=== PATIENT | female | born 1960 | race Two or more races ===

== ENCOUNTER 2025-03-15 15:05 | Emergency (ER) | payer OTHER, SELFPAY ==
[2025-03-15 15:47] VITALS: BP 124/78; PULSE 109; RESP 20; TEMP 37.1; O2SAT 97
--- NOTE | 2025-03-15 16:12 | XR_ITS ---
Examination: PA chest single view Technique: Upright PA chest single view Date and time: 131, 2024, 1618 hrs., Comparison November 15, 2023. Indications: Coughing today. Findings: Normal heart size. No pneumonia or pulmonary edema. Moderate osteopenia. Impression: No active disease.
--- NOTE | 2025-03-15 16:12 | PD.EDRME ---
Rapid Medical Screening Exam [facility] Arrival date/time: 03/15/25 15:05 This is a 64-year-old female that comes into the emergency room with complaints of weakness and feeling bloated. Patient is also reports poor appetite for the past 2 days. Patient denies fever, nausea, vomiting, diarrhea. Patient reports an occasional cough. Patient was seen by her primary doctor. Patient states that 1 morning she woke up and she was dizzy but since then it has resolved and is not complaining of dizziness at this time. Patient had an EKG done with 's office and per patient it was normal. Patient denies chest pain shortness of breath. Patient has a history of high blood pressure, hyperlipidemia. Patient reports that her urine smells. Patient denies urinary symptoms. I have greeted and performed a focused initial assessment of this patient. Initial appropriate labs ordered at this time. A comprehensive ED assessment and evaluation of the patient and analysis of all test and completion of medical decision making process will be conducted by additional ED provider. Chief Complaint: Dizziness Time Seen by Provider: 03/15/25 15:59 Vital signs: Vital Signs Temperature 98.7 F 03/15/25 15:47 Pulse Rate 109 H 03/15/25 15:47 Respiratory Rate 20 03/15/25 15:47 Blood Pressure 124/78 03/15/25 15:47 Pulse Oximetry (%) 97 03/15/25 15:47 Oxygen Delivery Method Room Air 03/15/25 15:47
[2025-03-15 16:42] LABS: Collection Type, Urine Voided
[2025-03-15 16:42] LABS: Basophils # (Auto) 0.1 Thou/mm3 (0.0-0.2); Basophils % (Auto) 1 % (0-2.5); Eosinophils # (Auto) 0.0 Thou/mm3 (0.0-0.5); Eosinophils % (Auto) 0 % (0-10); Hematocrit 43.8 % (36.0-46.0); Hemoglobin 14.9 g/dL (12.0-16.0); Immature Granulocytes Auto 0.03 Thou/mm3 (0.00-0.00); Lymphocytes # (Auto) 2.1 Thou/mm3 (1.0-4.8); Lymphocytes % (Auto) 21 % (10-50); Mean Corpuscular HGB Conc 34.0 g/dl (31.0-37.0); Mean Corpuscular Hemoglobin 30.0 pg (25.0-35.0); Mean Corpuscular Volume 88 fL (80-100); Monocytes # (Auto) 0.6 Thou/mm3 (0.0-0.8); Monocytes % (Auto) 6 % (0-12); Neutrophils # (Auto) 6.9 Thou/mm3 (1.8-7.7); Neutrophils % (Auto) 71 % (37-80); Nucleated Red Blood Cell # 0.00 Thou/mm3 (0.00-0.00); Nucleated Red Blood Cell % 0 /100 WBC (0); Platelet Count 263 Thou/mm3 (140-440); RDW Standard Deviation 41.6 fL (36.4-46.3); Red Blood Count 4.96 Miln/mm3 (4.00-5.20); White Blood Count 9.7 Thou/mm3 (3.6-11.0)
[2025-03-15 16:54] LABS: Bilirubin,Urine Negative (Negative); Blood,Urine Negative (Negative); Color,Urine Yellow (Lt Yel-Yel); Glucose, Urine Trace (Negative); Hyaline Casts,Urine < 1 /hpf (0-1); Ketones,Urine Trace (Negative); Leukocyte Esterase,Urine Positive (Negative); Nitrite,Urine Negative (Negative); PH,Urine 5.5 (5.0-7.0); Protein,Urine 1+ (Neg - Trace); RBC,Urine 2 /hpf (0-3); Specific Gravity,Urine 1.027 (1.001-1.035); Squamous Epithelial Cell,Urine 1 /hpf (0-5); Urobilinogen,Urine Negative mg/dL (0.0-1.0); WBC,Urine 19 /hpf (0-5)
[2025-03-15 17:03] LABS: Clarity,Urine Hazy (Clear/Hazy); Culture Indicated,Urine Yes
[2025-03-15 17:07] LABS: Alanine Aminotransferase 18 U/L (10-49); Albumin, Serum 4.8 gm/dL (3.4-4.8); Albumin/Globulin Ratio 1.5 (1.2-2.2); Alkaline Phosphatase 112 U/L (46-116); Anion Gap 11 (7-16); Aspartate Amino Transferase 24 U/L (0-34); BUN/Creatinine Ratio 16 Ratio (12-20); Bilirubin,Total 1.0 mg/dL (0.3-1.2); Blood Urea Nitrogen 16 mg/dL (9-23); Calcium 10.4 mg/dL (8.3-10.6); Calcium (Corrected) 10.4 mg/dL (8.5-10.1); Carbon Dioxide 26.6 mMol/L (20.0-31.0); Chloride 100 mMol/L (98-107); Creatinine (Component) 1.0 mg/dL (0.6-1.3); Estimated Creatinine Clearance 58.3 mL/min (>60); Globulin 3.2 gm/dL (2.3-3.5); Glucose 129 mg/dL (74-106); Osmolality,Calculated 278 (275-295); Potassium 3.5 mMol/L (3.4-5.1); Sodium 138 mMol/L (136-145); Total Protein 8.0 gm/dL (5.7-8.2); eGFR > 60 See Note
[2025-03-15 18:22] VITALS: BP 105/66; PULSE 86; RESP 16; TEMP 36.9; O2SAT 96
--- NOTE | 2025-03-15 18:28 | PD.EDADULT ---
ED General RME/HPI General Chief complaint: Dizziness Stated complaint: DIZZY X 1 DAY; SENT BY [facility] Time Seen by Provider: 03/15/25 15:59 Arrival date/time: 03/15/25 15:05 RME / HPI RME / HPI narrative: 03/15/25 15:05 This is a 64-year-old female that comes into the emergency room with complaints of weakness and feeling bloated. Patient is also reports poor appetite for the past 2 days. Patient denies fever, nausea, vomiting, diarrhea. Patient reports an occasional cough. Patient was seen by her primary doctor. Patient states that 1 morning she woke up and she was dizzy but since then it has resolved and is not complaining of dizziness at this time. Patient had an EKG done with 's office and per patient it was normal. Patient denies chest pain shortness of breath. Patient has a history of high blood pressure, hyperlipidemia. Patient reports that her urine smells. Patient denies urinary symptoms. I have greeted and performed a focused initial assessment of this patient. Initial appropriate labs ordered at this time. A comprehensive ED assessment and evaluation of the patient and analysis of all test and completion of medical decision making process will be conducted by additional ED provider. Patient is a 64-year-old female who for the last several weeks has had early satiety and feeling bloated with decreased appetite. No vomiting. No fevers. No dysuria. Some epigastric abdominal pain and occasional heartburn. Related Data Previous Rx's ?Medication ?Instructions ?Recorded pantoprazole 40 mg tablet,delayed 40 mg PO QDAY #30 tabs 03/15/25 release (Protonix) Allergies Allergy/AdvReac Type Severity Reaction Status Date / Time No Known Allergies Allergy Verified 03/15/25 15:08 Review of Systems Review of Systems Systems Reviewed: All systems reviewed, normal except as documented ED Exam Narrative Physical exam: Generally patient is alert no obvious distress, heart regular rate and rhythm, lungs clear to auscultation equal bilaterally, abdomen soft bowel sounds present nondistended nontender currently in a relatively benign exam, extremities show capillary refill less than 2 seconds without edema neurologic exam [place] Coma Scale is 15 Course Quality Measures none Orders Category Date Time Status Bedside COVID-19 Antigen Test NOW Care 03/15/25 16:18 Active Bedside Influenza A&B Antigen Test NOW Care 03/15/25 16:18 Completed XR chest 1V Stat Exams 03/15/25 16:12 Completed CBC Stat Lab 03/15/25 16:19 Completed Comprehensive Metabolic Panel Stat Lab 03/15/25 16:19 Completed Urinalysis, C/S if Indicated Stat Lab 03/15/25 16:20 Completed Urine Culture Stat Lab 03/15/25 16:20 Received Vital Signs Vital signs: Vital Signs Temperature 98.7 F 03/15/25 15:47 Pulse Rate 109 H 03/15/25 15:47 Respiratory Rate 20 03/15/25 15:47 Blood Pressure 124/78 03/15/25 15:47 Pulse Oximetry (%) 97 03/15/25 15:47 Oxygen Delivery Method Room Air 03/15/25 15:47 Discharge Plan Plan Patient Disposition: HOME (Self Care) Prescriptions/Referrals Prescriptions/Med Rec: New pantoprazole [Protonix] 40 mg tablet,delayed release (DR/EC) 40 mg PO QDAY Qty: 30 0RF Referrals: Reed Booker PA-C [Primary Care Provider] - In 1 week Problem List Clinical Impression: Early satiety, Abdominal bloating Patient/Caregiver Discharge Instructions Additional Instructions: Take the Protonix as prescribed. If symptoms persist follow-up with your doctor for GI referral. Return to ER as needed or if condition worsens. Print Language: Georgian Stand Alone Forms: Krystina Award Info., Patient Portal Info Letter MDM Narrative [facility] hospital course: I interpreted all labs. There was no significant abnormality. Patient will need to follow-up with a GI physician if symptoms worsen. Protonix as prescribed. Patient may have gastritis versus gastroesophageal reflux disease versus small intestinal bacterial overgrowth which would comprise part of the differential diagnosis. Nonetheless, the patient is stable for discharge home to take Protonix as prescribed and follow-up with the regular doctor for further treatment and evaluation and possible GI referral in the near future.
--- NOTE | 2025-03-15 18:33 | PD.EDADDENDU ---
Emergency Room Addendum Addendum Narrative: COVID and flu testing were negative.
--- NOTE | 2025-03-15 19:00 | PC.NURSE ---
Pt. here from home to room 6, pt. states she was dizzy the past 2 days, pt. states the dizziness is better today. Pt. states she just feels bloated. Pt. states she has an appointment with her Doctor on 03/17/25. Pt. states she is ready to go home.
[2025-03-15 19:05] VITALS: BP 122/66; PULSE 82; RESP 17; TEMP 36.8; O2SAT 95
== END 2025-03-15 19:06 | disposition home or self-care (01) ==
PROVIDERS: Nurse Practitioner Family; Emergency Provider Emergency Medicine; PCP Student in an Organized Health Care Education/Training Program
DX: R14.0 Abdominal distension (gaseous) (principal); R68.81 Early satiety; R05.9 Cough, unspecified
CPT/HCPCS: 36415; 71045; 80053; 81001; 85025; 87077; 87086; 87186; 87400; 87811; 99284

== ENCOUNTER → 2025-03-17 | Outpatient (CLI) | payer OTHER, SELFPAY ==
[2025-03-17 08:40] LABS: Basophils # (Auto) 0.1 Thou/mm3 (0.0-0.2); Basophils % (Auto) 1 % (0-2.5); Eosinophils # (Auto) 0.1 Thou/mm3 (0.0-0.5); Eosinophils % (Auto) 1 % (0-10); Hematocrit 42.1 % (36.0-46.0); Hemoglobin 13.8 g/dL (12.0-16.0); Immature Granulocytes Auto 0.02 Thou/mm3 (0.00-0.00); Lymphocytes # (Auto) 2.2 Thou/mm3 (1.0-4.8); Lymphocytes % (Auto) 32 % (10-50); Mean Corpuscular HGB Conc 32.8 g/dl (31.0-37.0); Mean Corpuscular Hemoglobin 29.9 pg (25.0-35.0); Mean Corpuscular Volume 91 fL (80-100); Monocytes # (Auto) 0.5 Thou/mm3 (0.0-0.8); Monocytes % (Auto) 7 % (0-12); Neutrophils # (Auto) 4.0 Thou/mm3 (1.8-7.7); Neutrophils % (Auto) 59 % (37-80); Nucleated Red Blood Cell # 0.00 Thou/mm3 (0.00-0.00); Nucleated Red Blood Cell % 0 /100 WBC (0); Platelet Count 231 Thou/mm3 (140-440); RDW Standard Deviation 42.5 fL (36.4-46.3); Red Blood Count 4.62 Miln/mm3 (4.00-5.20); White Blood Count 6.8 Thou/mm3 (3.6-11.0)
[2025-03-17 08:45] LABS: Glucose Estimated Average 114 mg/dL (80-131); Hemoglobin A1C 5.6 % Hgb (4.8-6.0)
[2025-03-17 08:56] LABS: Alanine Aminotransferase 14 U/L (10-49); Albumin, Serum 4.4 gm/dL (3.4-4.8); Anion Gap 10 (7-16); Aspartate Amino Transferase 20 U/L (0-34); BUN/Creatinine Ratio 20 Ratio (12-20); Bilirubin,Total 0.7 mg/dL (0.3-1.2); Blood Urea Nitrogen 18 mg/dL (9-23); Calcium 10.0 mg/dL (8.3-10.6); Calcium (Corrected) 10.0 mg/dL (8.5-10.1); Carbon Dioxide 28.2 mMol/L (20.0-31.0); Chloride 102 mMol/L (98-107); Creatinine (Component) 0.9 mg/dL (0.6-1.3); Globulin 2.7 gm/dL (2.3-3.5); Glucose 114 mg/dL (74-106); Osmolality,Calculated 282 (275-295); Potassium 4.0 mMol/L (3.4-5.1); Sodium 140 mMol/L (136-145); Total Protein 7.1 gm/dL (5.7-8.2); eGFR > 60 See Note
[2025-03-17 08:57] LABS: Albumin/Globulin Ratio 1.6 (1.2-2.2); Alkaline Phosphatase 102 U/L (46-116); Cardiac Risk Estimate 4.7 RATIO (3.7-5.6); Cholesterol 169 mg/dL (132-200); HDL Cholesterol 36 mg/dL (40-60); LDL Cholesterol,Calculated 96 mg/dL (0-130); Thyroid Stimulating Hormone 2.72 uIU/mL (0.55-4.78); Triglycerides 185 mg/dL (30-150)
== END | disposition home or self-care (01) ==
PROVIDERS: PCP Student in an Organized Health Care Education/Training Program; Referring Provider Student in an Organized Health Care Education/Training Program; Visit Provider Student in an Organized Health Care Education/Training Program
DX: I10 Essential (primary) hypertension (principal); E78.5 Hyperlipidemia, unspecified
CPT/HCPCS: 36415; 80053; 80061; 83036; 84443; 85025

== ENCOUNTER → 2025-03-20 | Outpatient (CLI) | payer OTHER, SELFPAY ==
[2025-03-20 10:24] LABS: Folate 20.71 ng/mL (>5.38); Vitamin B12 277 pg/mL (211-911); Vitamin D 25 Hydroxy Total 22.4 ng/mL (7.3-40.2)
== END | disposition home or self-care (01) ==
LOC: COPL 06:47
PROVIDERS: PCP Student in an Organized Health Care Education/Training Program; Referring Provider Student in an Organized Health Care Education/Training Program; Visit Provider Student in an Organized Health Care Education/Training Program
DX: E55.9 Vitamin D deficiency, unspecified (principal); I10 Essential (primary) hypertension; R53.83 Other fatigue
CPT/HCPCS: 36415; 82306; 82607; 82746

== ENCOUNTER → 2025-03-27 | Outpatient (CLI) | payer OTHER, SELFPAY ==
--- NOTE | 2025-03-27 13:00 | XR_ITS ---
Examination: Bone densitometry Date and time of exam:March 27, 2025, 1342 hours INDICATIONS: Menopause age 47 Technique: Lumbar spine and hip total bone mineralization values of an calculated. Peak reference and age match control results have been displayed. Findings: Lumbar spine total bone mineralization is0.911 gm/cm2. This is 1.2 standard deviations below peak reference. This is 0.6 standard deviations above age-matched controls. Hip total bone mineralization is 1.119 gm/cm2 This is 1.2 standard deviations above peak reference. This is 2.3 standard deviations above age-matched controls Impression: There is osteopenia based on lumbar spine measurements. There is normal mineralization based on hip measurements
--- NOTE | 2025-03-27 13:20 | XR_ITS ---
Examination: Screening digital mammography, bilateral Computer aided detection 3-D breast Tomosynthesis, bilateral Date and time of exam: March 27, 2025 1343 hours, compared to mammograms dating to November 18, 2021 Indication: Screening Technique: Nonmagnified MLO, CC views of the breasts to been obtained, reconstructed from 3-D Tomosynthesis images. R2 computer aided detection program utilized for evaluation of suspicious masses and/or abnormal calcifications. 3-D Tomosynthesis images obtained. Findings: Scattered areas of fibroid rather density. Benign calcifications. No interval suspicious masses Impression: BI-RADS category II: Benign Findings. Recommend 1 year follow-up mammogram.
== END | disposition home or self-care (01) ==
PROVIDERS: PCP Student in an Organized Health Care Education/Training Program; Referring Provider Student in an Organized Health Care Education/Training Program; Visit Provider Student in an Organized Health Care Education/Training Program
DX: Z12.31 Encounter for screening mammogram for malignant neoplasm of breast (principal); R92.323 Mammographic fibroglandular density, bilateral breasts; R92.1 Mammographic calcification found on diagnostic imaging of breast; M85.88 Other specified disorders of bone density and structure, other site
CPT/HCPCS: 77063; 77067; 77080

== ENCOUNTER 2025-04-15 05:31 | Emergency (ER) | payer OTHER, SELFPAY ==
[2025-04-15 05:32] VITALS: BP 157/74; PULSE 86; RESP 20; TEMP 36.8; O2SAT 97; BMI 32.3
--- NOTE | 2025-04-15 05:44 | XR_ITS ---
Examination: Pelvic ultrasound, transabdominal, complete Technique: Transabdominal ultrasound of the pelvis performed using grayscale imaging Date and time of exam: April 15, 2025, 0821 hours INDICATIONS: Onset pelvic pain today FINDINGS: Uterus ovaries not visualized, bladder is not full IMPRESSION: Limited study, bladder is not full, ovaries and uterus not visualized Consider transvaginal pelvic sonography follow-up
--- NOTE | 2025-04-15 05:45 | PD.EDRME ---
Rapid Medical Screening Exam [facility] Arrival date/time: 04/15/25 05:31 64F with history of HTN presents to ED with several days of pelvic pain. Patient denies dysuria. Chief Complaint: Abdominal Pain Vital signs: Vital Signs Temperature 98.2 F 04/15/25 05:32 Pulse Rate 86 04/15/25 05:32 Respiratory Rate 20 04/15/25 05:32 Blood Pressure 157/74 H 04/15/25 05:32 Pulse Oximetry (%) 97 04/15/25 05:32 Oxygen Delivery Method Room Air 04/15/25 05:32
[2025-04-15 06:06] LABS: Basophils # (Auto) 0.1 Thou/mm3 (0.0-0.2); Basophils % (Auto) 1 % (0-2.5); Eosinophils # (Auto) 0.1 Thou/mm3 (0.0-0.5); Eosinophils % (Auto) 1 % (0-10); Hematocrit 41.2 % (36.0-46.0); Hemoglobin 13.7 g/dL (12.0-16.0); Immature Granulocytes Auto 0.03 Thou/mm3 (0.00-0.00); Lymphocytes # (Auto) 2.0 Thou/mm3 (1.0-4.8); Lymphocytes % (Auto) 19 % (10-50); Mean Corpuscular HGB Conc 33.3 g/dl (31.0-37.0); Mean Corpuscular Hemoglobin 30.4 pg (25.0-35.0); Mean Corpuscular Volume 92 fL (80-100); Monocytes # (Auto) 0.6 Thou/mm3 (0.0-0.8); Monocytes % (Auto) 5 % (0-12); Neutrophils # (Auto) 7.8 Thou/mm3 (1.8-7.7); Neutrophils % (Auto) 74 % (37-80); Nucleated Red Blood Cell # 0.00 Thou/mm3 (0.00-0.00); Nucleated Red Blood Cell % 0 /100 WBC (0); Platelet Count 205 Thou/mm3 (140-440); RDW Standard Deviation 44.1 fL (36.4-46.3); Red Blood Count 4.50 Miln/mm3 (4.00-5.20); White Blood Count 10.6 Thou/mm3 (3.6-11.0)
[2025-04-15 06:24] LABS: Alanine Aminotransferase 10 U/L (10-49); Albumin, Serum 4.7 gm/dL (3.4-4.8); Albumin/Globulin Ratio 1.5 (1.2-2.2); Alkaline Phosphatase 101 U/L (46-116); Anion Gap 9 (7-16); Aspartate Amino Transferase < 8 U/L (0-34); BUN/Creatinine Ratio 15 Ratio (12-20); Bilirubin,Total 0.8 mg/dL (0.3-1.2); Blood Urea Nitrogen 12 mg/dL (9-23); Calcium 9.7 mg/dL (8.3-10.6); Calcium (Corrected) 9.7 mg/dL (8.5-10.1); Carbon Dioxide 25.7 mMol/L (20.0-31.0); Chloride 106 mMol/L (98-107); Creatinine (Component) 0.8 mg/dL (0.6-1.3); Estimated Creatinine Clearance 68.8 mL/min (>60); Globulin 3.1 gm/dL (2.3-3.5); Glucose 121 mg/dL (74-106); Osmolality,Calculated 281 (275-295); Potassium 4.0 mMol/L (3.4-5.1); Sodium 141 mMol/L (136-145); Total Protein 7.8 gm/dL (5.7-8.2); eGFR > 60 See Note
[2025-04-15 06:28] LABS: Collection Type, Urine Clean Catch
[2025-04-15 06:36] LABS: Bilirubin,Urine Negative (Negative); Blood,Urine Negative (Negative); Clarity,Urine Clear (Clear/Hazy); Color,Urine Lt-Yellow (Lt Yel-Yel); Culture Indicated,Urine Not Indicated; Glucose, Urine Negative (Negative); Ketones,Urine Negative (Negative); Leukocyte Esterase,Urine Positive (Negative); Nitrite,Urine Negative (Negative); PH,Urine 6.0 (5.0-7.0); Protein,Urine Negative (Neg - Trace); RBC,Urine 2 /hpf (0-3); Specific Gravity,Urine 1.019 (1.001-1.035); Squamous Epithelial Cell,Urine 2 /hpf (0-5); Urobilinogen,Urine Negative mg/dL (0.0-1.0); WBC,Urine 3 /hpf (0-5)
--- NOTE | 2025-04-15 07:38 | EDNOTE_ITS ---
ED Abdominal Pain RME/HPI General Chief Complaint: Abdominal Pain Stated complaint: LOWER ABDOMINAL PAIN X2 DAYS Time seen by provider: 04/15/25 07:00 Arrival date/time: 04/15/25 05:31 Limitations: no limitations RME / HPI RME / HPI narrative: 64-year-old female here for evaluation of lower abdominal/pelvic pain that has been ongoing for the past few days. Notes that she has had this in the past on and off for years now. Has been told by her safety consultant that it may possibly be a uterine/back bladder problem. Notes that she has had increased pressure with standing recently, increased urinary frequency for the past few weeks. Denies any nausea, vomiting, diarrhea, fever, vaginal bleeding or discharge. Past medical history significant for hypertension and hyperlipidemia for which she takes benazepril and atorvastatin. Related Data Previous Rx's ?Medication ?Instructions ?Recorded pantoprazole 40 mg tablet,delayed 40 mg PO QDAY #30 ta bs 03/15/25 release (Protonix) amoxicillin 875 mg-potassium 1 tab PO Q8H 7 days #21 t abs 04/15/25 clavulanate 125 mg tablet tramadol 50 mg tablet 50 mg PO Q8H PRN pain #14 ta bs 04/15/25 Allergies Allergy/AdvReac Type Severity Reaction Status Date / Time Sulfa (Sulfonamide Allergy Verified 04/15/25 05:34 Antibiotics) Review of Systems Review of Systems Systems Reviewed: All systems reviewed, normal except as documented Past Medical History Past Medical History CARDIAC: Positive Hypercholesterolemia and Hypertension REPRODUCTIVE: Positive Previous Pregnancies Surgical History SURGICAL: Positive Tubal Ligation Social History SMOKING STATUS: Never smoker Past Medical History Comments PMH COMMENT: Hypertension, hyperlipidemia ED Exam Narrative Physical exam: Constitutional: Awake, alert, nontoxic, overweight, no acute distress HEENT: Normocephalic, atraumatic, extraocular movements intact. CV: Regular rate and rhythm, no murmurs/rubs/gallops Lungs: Clear to auscultation BL, no respiratory distress. Abd: Soft, mild tenderness to palpation of left lower quadrant and suprapubic region, nondistended, no rebound or guarding noted. Skin: Warm, dry, intact General Limitations: Present no limitations Course Course Course Narrative: 0735h: 64-year-old female here for evaluation of lower abdominal/pelvic pain ongoing for the past few days has had history of similar in the past 4 years now. Labs and pelvic ultrasound ordered for further evaluation. 1125h: Patient is agreeable to CT with contrast. 1158h: CT shows mild diverticulitis. Patient is vitally stable with overall benign exam. Patient is okay to DC home. Discussed antibiotic course vs holding off antibiotics. We discussed the possibility of starting antibiotics for mild diverticulitis. According to the literature, antibiotics may not be necessary for mild presentations. I prescribed Augmentin and advised the patient to hold off on starting it for the next several days, following a full liquid diet. If symptoms do not improve, they should begin the medication. I advised if she experiences significant nausea, vomiting, or severe pain, they should return to the ED for further evaluation. Quality Measures none Orders Category Date Time Status CT Screening NOW Care 04/15/25 10:20 Active Insert IV NOW Care 04/15/25 10:[address] abdomen pelvis w con Stat Exams 04/15/25 10:19 Completed US pelvic complete Stat Exams 04/15/25 05:44 Completed CBC Stat Lab 04/15/25 05:54 Completed CMP [Comprehensive Metabolic Panel] Stat Lab 04/15/25 05:54 Completed Urinalysis, C/S if Indicated Stat Lab 04/15/25 06:10 Completed Ketorolac Inj [Toradol Inj] Med 04/15/25 07:42 Discontinued 30 mg IM X1 ONE Vital Signs Vital signs: Vital Signs Temperature 98.2 F 04/15/25 05:32 Pulse Rate 86 04/15/25 05:32 Respiratory Rate 20 04/15/25 05:32 Blood Pressure 157/74 H 04/15/25 05:32 Pulse Oximetry (%) 97 04/15/25 05:32 Oxygen Delivery Method Room Air 04/15/25 05:32 Pulse ox is 97% on room air which is adequate. Abdominal Pain MDM Patient data External records reviewed:: [facility] previous records Clinical information provided by:: patient Social determinants that could affect healthcare access:: none Patient has the following chronic illnesses:: HTN, HLD How is presenting disease/condition affected by chronic disease/condition?: uneffected by Evaluation data The following diagnostics were reviewed and interpreted by me:: lab results and radiology exam(s) Lab and/or radiology exams considered but not ordered:: None Interpretation Summary: Ordering Physician: Ang Barrera PA-C Date of Service: 04/15/25 Procedure(s): US pelvic complete Accession Number(s): [id number] cc: Reed Booker PA-C; Luis F Romero MD; Ang Barrera PA-C~ Examination: Pelvic ultrasound, transabdominal, complete Technique: Transabdominal ultrasound of the pelvis performed using grayscale imaging Date and time of exam: April 15, 2025, 0821 hours INDICATIONS: Onset pelvic pain today FINDINGS: Uterus ovaries not visualized, bladder is not full IMPRESSION: Limited study, bladder is not full, ovaries and uterus not visualized Consider transvaginal pelvic sonography follow-up Dictated By: Luis F Romero MD Signed By: <Electronically signed by Luis F Romero MD in OV> 04/15/25 0938 Ordering Physician: Yanna Delong MD Date of Service: 04/15/25 Procedure(s): CT abdomen pelvis w con Accession Number(s): [id number] cc: Reed Booker PA-C; Luis F Romero MD; Yanna Delong MD~ Examination: CT abdomen with intravenous contrast CT pelvis with intravenous contrast 2-D coronal reconstructions 2-D sagittal reconstructions Date and time of exam:April 15, 2025, 1123 hours INDICATIONS: Left lower abdominal pain and nausea beginning today. CTDI: vol (mGy) 9.78 DLP: (mGycm) 524 Technique: Multiple axial sections of the abdomen and pelvis have been obtained. 64 slice high-resolution scanner used. 3 mm axial sections have been obtained, post intravenous injection 60 cc [id number] 2-D sagittal, coronal reconstructions obtained. Low dose protocols were performed. One or more of the following dose reduction techniques were used; automated exposure control, adjustment of the mA and/or KV according to patient size, use of iterative reconstruction technique. Findings: No focal liver or splenic lesions Absent gallbladder No pancreatic or adrenal mass. Mild renal scar formation No renal or ureteral calculi, no hydronephrosis Aorta is not enlarged. 12 mm fat-containing umbilical hernia. Normal appendix. No bowel obstruction Colonic diverticulosis, suspicious for early acute diverticulitis sigmoid colon, axial image [id number] No peridiverticular abscess No pelvic mass Contracted urinary bladder Moderate osteopenia IMPRESSION: Mild acute diverticulitis sigmoid colon Dictated By: Luis F Romero MD Signed By: <Electronically signed by Luis F Romero MD in OV> 04/15/25 1151 Medications / Prescriptions Medications or Prescriptions considered but not ordered:: None Medication administrations:: Medication Administration History Discontinued Medications Ketorolac Tromethamine (Ketorolac Inj 30 Mg/Ml Vial) 30 mg IM X1 ONE Stop: 04/15/25 07:43 Last Admin: 04/15/25 07:49 Dose: Not Given Documented By: DB Non-Admin Reason: Patient Asleep See above Consultations Consultation(s) initiated? (list below): No Diagnosis Differential diagnosis abdominal pain: abdominal pain, calculus of kidney, constipation, diverticulitis, gastroenteritis and small bowel obstruction Most likely diagnosis given after review of the tests above:: Diverticulitis Admission Indicated Admission indicated?: not indicated Admission Request Was there a request for admission?: No Disposition Plan Disposition Plan: Discharge Discharge Attestation Discharge Attestation: The patient and all family members were given an opportunity to ask questions a nd understood the discharge instructions. Discharge instructions specifically effects, indications for sooner follow up or return to the emergency department, and the expected course of current diagnosis. Patient condition: Stable Discharge Plan Plan Patient Disposition: HOME (Self Care) Patient condition on transfer: Stable Prescriptions/Referrals Prescriptions/Med Rec: New tramadol 50 mg tablet 50 mg PO Q8H PRN (Reason: pain) Qty: 14 0RF amoxicillin-pot clavulanate 875-125 mg tablet 1 tab PO Q8H 7 Days Qty: 21 0RF No Action pantoprazole [Protonix] 40 mg tablet,delayed release (DR/EC) 40 mg PO QDAY Qty: 30 0RF Referrals: Reed Booker PA-C [Primary Care Provider] - In 1 week Problem List Clinical Impression: Diverticulitis Patient/Caregiver Discharge Instructions Education Materials: Full Liquid Diet Dc, ED Diverticulitis Additional Instructions: Some general health principles that can help you are the [employer] principles: Nutrition (eat a plant-based diet, avoiding meats in general, avoiding highly processed foods) Exercise (Daily exercise/walks as tolerated) Water (Drink adequate fresh water to maintain hydration, concentrating on water rather than on soda, coffee, tea, juice, etc for hydration) [place] (Spend time - 15-20 minutes or so with 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 and late evening sun for Vitamin D health benefits) [place] (Avoid alcohol, illicit drugs, caffeinated beverages, smoking, etc) Air (Deep breathing exercises in the early mornings in fresh air) Rest (Adequate rest at night, going to bed a few hours before midnight and avoiding all screens/television/loud music in the time right before going to bed, also avoiding heavy meals just prior to going to bed) Trust in God (Spend time daily in Bible study and prayer - health benefits in contemplation of God's true character) Additional resources that can benefit: [email or web address] Business Plan, look under resources and seminars. Print Language: Irish Stand Alone Forms: Krystina Award Info., Patient Portal Info Letter
--- NOTE | 2025-04-15 10:19 | XR_ITS ---
Examination: CT abdomen with intravenous contrast CT pelvis with intravenous contrast 2-D coronal reconstructions 2-D sagittal reconstructions Date and time of exam:April 15, 2025, 1123 hours INDICATIONS: Left lower abdominal pain and nausea beginning today. CTDI: vol (mGy) 9.78 DLP: (mGycm) 524 Technique: Multiple axial sections of the abdomen and pelvis have been obtained. 64 slice high-resolution scanner used. 3 mm axial sections have been obtained, post intravenous injection 60 cc [id number] 2-D sagittal, coronal reconstructions obtained. Low dose protocols were performed. One or more of the following dose reduction techniques were used; automated exposure control, adjustment of the mA and/or KV according to patient size, use of iterative reconstruction technique. Findings: No focal liver or splenic lesions Absent gallbladder No pancreatic or adrenal mass. Mild renal scar formation No renal or ureteral calculi, no hydronephrosis Aorta is not enlarged. 12 mm fat-containing umbilical hernia. Normal appendix. No bowel obstruction Colonic diverticulosis, suspicious for early acute diverticulitis sigmoid colon, axial image [id number] No peridiverticular abscess No pelvic mass Contracted urinary bladder Moderate osteopenia IMPRESSION: Mild acute diverticulitis sigmoid colon
--- NOTE | 2025-04-15 10:33 | PC.NURSE ---
PT REFUSING CT WITH CONTRAST, DR. GARCIA MADE AWARE.
[2025-04-15 12:15] VITALS: BP 173/77; PULSE 78; RESP 17; TEMP 36.8; O2SAT 99
[2025-04-15 12:29] VITALS: BP 173/77; PULSE 78; RESP 17; TEMP 36.8; O2SAT 99
== END 2025-04-15 12:30 | disposition home or self-care (01) ==
PROVIDERS: Physician Assistant; Emergency Provider Family Medicine; PCP Student in an Organized Health Care Education/Training Program
DX: K57.32 Diverticulitis of large intestine without perforation or abscess without bleeding (principal); I10 Essential (primary) hypertension; E78.00 Pure hypercholesterolemia, unspecified; Z88.2 Allergy status to sulfonamides
CPT/HCPCS: 36415; 74177; 76856; 80053; 81001; 85025; 99284; A4649; Q9967